=== PATIENT | male | born 1940 | race Caucasian/White ===

== ENCOUNTER 2018-03-10 13:06 | Inpatient (IN) | payer OTHER ==
[~2018-03-10] VITALS: Ht 182.9 cm; Wt 76.6 kg
--- NOTE | ~2018-03-10 | HC ---
[facility] [place] [address] [place] [address] CONSULTATION Name: ALIYA BENITES Room #: 203-P ADM IN M.R.#: [id number] Admission: 03/10/18 Attend Phys: Ean Hargrove MD Discharge: Date of : 39 Report #: [id number] THIS REPORT FOR: //name// CC: Ean Hargrove [facility] physician/PCP DATE OF SERVICE: 03/10/2018 HISTORY OF PRESENT ILLNESS: This is a 77-year-old male patient who was evaluated by me for stroke. The patient is a poor historian. I talked to Emergency Room physician and talked to admitting physician, Dr. Hargrove. This patient lives with his son. Son was out of the town. He also was living with a friend during that time who called the son because the patient was not acting right. He is weak on the left side. He also has some neglect on the left side. Symptoms are more than 24-hour duration. He did fall, but does not look like he received any injury. It is not clear if he hit his head or not. He does not know anything, which makes this symptom worse or better. He does not know if it has improved or not, but he has a significant neglect there. REVIEW OF SYSTEMS: Indicates his vascular risk factor is stroke. He is a very poor historian. He cannot tell me if he has been hypertensive or diabetic, the best he knows he is not. He does not have any history of stroke in the past. He denies any new eye, ENT, cardiac, respiratory, GI, , musculoskeletal, constitutional, dermatological, hematological, psychiatry, throat or allergic symptom associated with present symptomatology. PAST MEDICAL HISTORY: Negative for stroke. FAMILY HISTORY: Negative for early age stroke. SOCIAL HISTORY: He smokes. PHYSICAL EXAMINATION: Indicate he is alert. He is responsive. He can follow simple commands. His speech looks intact, but his memory and fund of knowledge is diminished. Cranial nerve examination 2-12 indicates left hemianopsia and mild left facial weakness. He is weak in the left upper and left lower extremities. His position sense appeared to be present. He has neglect there. He does have visual spacial problem there. There are no cerebellar signs on the right side. I could not have a very good look at the patient's fundus. He is moderately well-built individual who does not have any dysmorphic features of eyes, ears and face. His vision and hearing looks adequate. His pulses are difficult to feel. He has no edema, cyanosis or jaundice. Cardiac examination is unremarkable. No respiratory difficulty or rhonchi was noticed on either side. Blood pressure is 142/85, respirations 16, pulse is 116. LABORATORY DATA: Indicate a white count of 12.5, which is somewhat high. His [facility] [address] [place] [address] CONSULTATION Name: ALIYA BENITES Room #: 203-P [facility] IN M.R.#: [id number] Admission: 03/10/18 Attend Phys: Ean Hargrove MD Discharge: Date of : 39 Report #: [id number] troponin is high at 5.88, and his liver function is also somewhat off. There is a CT scan that demonstrates finding consistent with right posterior cerebral artery infarct. He has metal in his body and is not sure if he can have an MRI or not: IMPRESSION: 1. Cerebrovascular accident. 2. Metal in the body, which may be contraindication for MRI. 3. Nicotine abuse. 4. Increased troponin. Some increase in troponin is common in stroke, but this looks more than what usually is seen. Because of that, I will suggest a cardiology consult, especially because he has a posterior cerebral artery stroke, which is a common site for embolization from the heart. RECOMMENDATIONS: 1. We will get a carotid Doppler first. 2. We will get an echocardiogram. 3. We will get a cardiology consult. 4. We will get some more blood workup. 5. He fell down. It is not clear what the history is in that regard, but because of that, I will go ahead and do a CT of the C-spine. It does not look like it was a dissection, but I will look at the CT spine. 6. We will put him on aspirin. 7. We will check a lipid profile and see if we need to do anything further in that regard, especially about the statin. All of it was discussed with the patient and the family and admitting doctor. We will follow this patient along with you. <ELECTRONICALLY SIGNED> By: Kael Guidry MD 03/11/18 1349 [id number] [id number] Kael Guidry MD /nt
--- NOTE | ~2018-03-10 | EKG ---
[place] [facility] [place] [address] ELECTROCARDIOGRAM REPORT Name: ALIYA BENITES Room #: 170-9 ADM IN M.R.#: [id number] Admission: 03/10/18 Attend Phys: Ean Hargrove MD Discharge: Date of : 39 Report #: [id number] THIS REPORT FOR: //name// [facility] ED Test Date: 2018-03-10 Test Time: 13:58:37 Pat Name: ALIYA BENITES Department: Room: Gender: M [employer] Spanish Teacher: jenny : 1940 Requested By: Rosanna Jarquin Order Number: [id number] MD: Be Joyner Measurements Intervals [place] Rate: 81 P: 52 [place]: 157 QRS: -4 QRSD: 116 T: 167 QT: 389 QTc: 452 Interpretive Statements Sinus rhythm Multiple premature complexes, vent & supraven Incomplete left bundle branch block ST depr, consider ischemia, anterolateral lds Compared to ECG 06/26/2016 21:43:55 Left bundle-branch block now present Possible ischemia now present Sinus arrhythmia no longer present ST (T wave) deviation no longer present Electronically Signed On 03-10-2018 15:48:35 CDT by Be Joyner [email or web address] <ELECTRONICALLY SIGNED> By: Be Joyner MD 03/10/18 1548 1358 [id number] Be Joyner MD /EPI
--- NOTE | ~2018-03-10 | EKG ---
[address] [employer] [address] ELECTROCARDIOGRAM REPORT Name: ALIYA BENITES Room #: 203-P ADM IN M.R.#: [id number] Admission: 03/10/18 Attend Phys: Ean Hargrove MD Discharge: Date of : 39 Report #: [id number] THIS REPORT FOR: //name// [facility] [place] [facility] Test Date: 2018-03-10 Test Time: 19:51:30 Pat Name: ALIYA BENITES Department: Room: 403 P Gender: M Dental Lab Technician: Yuan [place] : 1940 Requested By: Ean Hargrove Order Number: [id number] MD: Alvaro Hendrix Measurements Intervals [place] Rate: 98 P: 58 [place]: 152 QRS: 11 QRSD: 118 T: 192 QT: 376 QTc: 481 Interpretive Statements Sinus rhythm with atrial premature complexes Occasional premature ventricular complexes Nonspecific ST and T wave abnormality Compared to ECG 03/10/2018 13:58:37 premature ventricular complexes are now present Electronically Signed On 03-11-2018 8:04:13 CDT by Alvaro Hendrix [email or web address] <ELECTRONICALLY SIGNED> By: Alvaro Hendrix MD, [facility] 03/11/18 0804 50 50 Alvaro Hendrix MD, [facility] /EPI
--- NOTE | ~2018-03-10 | 2DMMODE ---
[facility] [address] [place] [address] 2 D/M-MODE ECHOCARDIOGRAM Name: ALIYA BENITES Room #: 203-P ADM IN .R.#: [id number] Admission: 03/10/18 Attend Phys: Ean Hargrove MD Discharge: Date of : 39 Date of Service: 03/11/18 0908 Report #: [id number] THIS REPORT FOR: //name// APPROVED REPORT Study performed: 03/11/2018 08:18:35 EXAM: Comprehensive 2D, Doppler, and color-flow Echocardiogram Patient Location: Bedside Room #: 203 Status: routine BSA: 1.94 HR: 85 bpm BP: 145/111 mmHg Other Information Study Quality: Adequate Indications CVA/TIA Hypertension/HDD 2D Dimensions RVDd: 45.26 mm LVEF(%): 17.25 (>50%) IVSd: 8.99 (7-11mm) LVOT Diam: 24.31 (18-24mm) LVDd: 62.91 mm PWd: 8.99 (7-11mm) Ascending Ao: 30.79 (22-36mm) LVDs: 57.91 (25-40mm) Aortic Root: 33.24 mm IVC: 23.00 mm Car's LVEF: 17.25 % Volumes Left Atrial Volume (Systole) Single Plane 4CH: 64.60 mL Single Plane 2CH: 67.81 mL LA ESV Index: 37.00 mL/m2 Pulmonary Valve PV Peak Adin.: 0.82 m/s PV Peak Gr.: 2.70 mmHg Tricuspid Valve TR Peak Adin.: 3.18 m/s TR Peak Gr.: 40.52 mmHg PA Pressure: 55.00 mmHg Left Ventricle [facility] [address] [place] [address] 2 D/M-MODE ECHOCARDIOGRAM Name: ALIYA BENITES Room #: 203-P ADM IN M.R.#: [id number] Admission: 03/10/18 Attend Phys: Ean Hargrove MD Discharge: Date of : 39 Date of Service: 03/11/18 0908 Report #: [id number] Left ventricle is dilated. There is normal left ventricular wall thickness. Left ventricular ejection fraction is severely decreased. LVEF is 25%. This study is not technically sufficient to allow evaluation of the LV diastolic function. Right Ventricle Right ventricle is dilated. Right ventricle is hypokinetic. Atria Left atrium is dilated. Interatrial septum is intact without evidence of ASD or PFO. Right atrium is dilated. Aortic Valve Aortic valve is grossly normal in structure. Mild aortic regurgitation. There is no aortic valvular stenosis. Mitral Valve Moderate mitral annular calcification Moderately severe to severe mitral regurgitation No evidence of mitral valve stenosis. Tricuspid Valve The tricuspid valve is normal in structure. There is mild tricuspid regurgitation. Estimated PAP 55 mmHg. There is moderate pulmonary hypertension. Pulmonic Valve The pulmonary valve is normal in structure. There is no pulmonic valvular regurgitation. Great Vessels The aortic root is normal in size. The inferior vena cava is dilated with no inspiratory collapse. Pericardium There is no pericardial effusion. <Conclusion> Left ventricular ejection fraction is severely decreased. LVEF is 25%. Both atria are dilated. No shunting by contrast bubble injection Aortic valve is grossly normal in structure. Mild aortic regurgitation. Moderate mitral annular calcification. Moderately severe to severe mitral regurgitation [facility] [address] [place] [address] 2 D/M-MODE ECHOCARDIOGRAM Name: ALIYA BENITES Room #: 203-P [facility] IN .R.#: [id number] Admission: 03/10/18 Attend Phys: Ean Hargrove MD Discharge: Date of : 39 Date of Service: 03/11/18907 Report #: [id number] There is mild tricuspid regurgitation. Estimated pulmonary artery pressure of 55 mmHg. There is no pericardial effusion. <ELECTRONICALLY SIGNED> By: Alvaro Hendrix MD, [facility] 03/11/18907 7 7 Alvaro Hendrix MD, FACC /INF
--- NOTE | ~2018-03-10 | EKG ---
[address] [address] ELECTROCARDIOGRAM REPORT Name: ALIYA BENITES Room #: 170-9 ADM IN M.R.#: [id number] Admission: 03/10/18 Attend Phys: Ean Hargrove MD Discharge: Date of : 39 Report #: [id number] THIS REPORT FOR: //name// [facility] ED Test Date: 2018-03-10 Test Time: 13:54:58 Pat Name: ALIYA BENITES Department: Room: Gender: M Motion Graphics Designer: jenny : 1940 Requested By: Pasquale Abbott Order Number: [id number] MD: Measurements Intervals [place] Rate: 101 P: 50 [place]: 157 QRS: -4 QRSD: 112 T: 243 QT: 372 QTc: 483 Interpretive Statements Sinus tachycardia with irregular rate Borderline intraventricular conduction delay Repol abnrm suggests ischemia, diffuse leads Compared to ECG 06/26/2016 21:43:55 Early repolarization now present Possible ischemia now present Sinus arrhythmia no longer present ST (T wave) deviation no longer present [email or web address] By: 1354 1354 Epiphany Epiphany, /EPI
--- NOTE | ~2018-03-10 | EKG ---
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[place] : 1940 Requested By: Pasquale Abbott Order Number: [id number] MD: Alvaro Hendrix Measurements Intervals [place] Rate: 96 P: 39 [place]: 174 QRS: 1 QRSD: 116 T: 126 QT: 384 QTc: 486 Interpretive Statements Sinus rhythm LVH with secondary repolarization abnormality Borderline prolonged QT interval Compared to ECG 03/10/2018 13:58:37 Premature ventricular complexes no longer present Electronically Signed On 03-11-2018 7:59:33 CDT by Alvaro Hendrix [email or web address] <ELECTRONICALLY SIGNED> By: Alvaro Hendrix MD, [facility] 03/11/18 0759 1742 174 Alvaro Hendrix MD, [facility] /EPI
--- NOTE | ~2018-03-10 | HC ---
[facility] [place] [address] [place] [address] CONSULTATION Name: ALIYA BENITES Room #: 237-P ADM IN M.R.#: [id number] Admission: 03/10/18 Attend Phys: Ean Hargrove MD Discharge: Date of : 39 Report #: [id number] THIS REPORT FOR: //name// CC: Ean Hargrove [facility] physician/PCP CHIEF COMPLAINT: Hematuria. HISTORY OF PRESENT ILLNESS: The patient is a 77-year-old gentleman who is being seen today at the request of Dr. Hargrove for evaluation and management of hematuria. Specifically, he is hospitalized with a CVA and a non-ST elevation myocardial infarction. He has a Becerra catheter indwelling. He apparently pulled on it and his urine became sanguinous. I am not able to obtain any premorbid voiding history from him. At this time, the nurses apparently irrigated it. However, upon questioning the nurses, they were irrigating the side port of the drainage bag, not the side port itself. ALLERGIES: None. MEDICATIONS: Refer to the medication reconciliation sheet. PAST MEDICAL HISTORY: Illnesses include coronary artery disease, CVA and history of BPH. PAST SURGERIES: Include coronary artery bypass graft. REVIEW OF SYSTEMS: No shortness of breath or chest pain, but he does not answer questions logically. PHYSICAL EXAMINATION: GENERAL: He is comfortable appearing, lying in bed. ABDOMEN: Soft. GENITOURINARY: He has a normal phallus. The Becerra catheter is in the urethra, but I can feel the balloon inflated, it was probably the bulbar urethra. I deflated the balloon and advanced the catheter, pink-tinged urine was obtained. I then reinflated the balloon and irrigated the catheter to a point where the urine was clear. Catheter was draining well. IMPRESSION: Urethral trauma. PLAN: Leave Becerra in for 4-5 days and remove when medically stable. By: 0727 0740 Roel Solano MD /nt
[~2018-03-10 13:06] MED LIST: ACIDOPHILUS LACT1 GM PO; LEVAQUIN 500 M500 M2 PO; NOHOMEMEDICATIONS; VENTOLIN HFA 1818 GM INH
[2018-03-10 13:29] LABS: ABSOLUTE NEUTROPHILS 10.1 thou/uL (1.4-8.2); BASOPHILS 0.6 % (0.0-2.0); EOSINOPHILS 0.2 % (0.0-3.0); HEMOGLOBIN 14.4 gm/dL (14.0-18.0); LYMPHOCYTES 11.7 % (24.0-44.0); MCH 29.8 pg (26.0-34.0); MCHC 33.4 g/dL (28.0-37.0); MCV 89.1 fL (80.0-100.0); MONOCYTES 6.4 % (1.0-8.0); PLATELET COUNT 248 thou/uL (150-400); POLYS 81.1 % (36.0-66.0); RBC 4.83 mil/uL (4.50-6.00); RDW 14.9 % (10.5-14.5); WBC 12.5 thou/uL (4.0-11.0)
[2018-03-10 13:40] LABS: CALCIUM 8.7 mg/dL (8.5-10.1)
[2018-03-10 16:10] LABS: ALBUMIN 3.6 g/dL (3.4-5.0); DIRECT BILIRUBIN 0.2 mg/dL (<0.1-0.3); MAGNESIUM 2.1 mg/dL (1.8-2.4); TOTAL BILIRUBIN 0.5 mg/dL (<0.1-1.0); TOTAL PROTEIN 7.1 g/dL (6.4-8.2)
[2018-03-10 16:12] LABS: TROPONIN-I 5.88 ng/mL (<0.06)
[2018-03-10 16:39] VITALS: BP 142/85
[2018-03-10 16:53] LABS: URINE BILIRUBIN NEGATIVE (Negative); URINE BLOOD 1+ (Negative); URINE CLARITY CLEAR; URINE COLOR YELLOW; URINE GLUCOSE-RANDOM* NEGATIVE (Negative); URINE KETONES NEGATIVE (Negative); URINE LEUKOCYTES-REFLEX NEGATIVE (Negative); URINE NITRITE-REFLEX NEGATIVE (Negative); URINE PROTEIN (DIPSTICK) TRACE (Negative); URINE SPECIFIC GRAVITY >= 1.030 (1.005-1.035)
[2018-03-10 16:57] LABS: CHOLESTEROL 195 mg/dL (<200); HDL CHOLESTEROL 47 mg/dL (>40); LDL CHOLESTEROL 133 mg/dL (<100); TC:HDL 4.1 Ratio (Not establshd); TRIGLYCERIDE 78 mg/dL (<150); VLDL 16 mg/dL (<40)
[2018-03-10 17:20] VITALS: BP 155/97
[2018-03-10 17:24] LABS: CASTS None Seen /LPF (None Seen); CRYSTALS None Seen /LPF (None Seen); SQUAMOUS 0-3 Few /LPF (0-3); URINE RBC 3-10 Few /HPF (0-2)
[2018-03-10 17:25] LABS: BACTERIA-REFLEX 1-9 Few /HPF (None Seen); URINE WBC-REFLEX 0-5 Rare /HPF (0-5)
[2018-03-10 17:58] VITALS: BP 145/73
[2018-03-10 20:57] LABS: HEMATOCRIT 42.4 % (42.0-52.0); HEMOGLOBIN 14.2 gm/dL (14.0-18.0); MCH 29.5 pg (26.0-34.0); MCHC 33.5 g/dL (28.0-37.0); MCV 88.1 fL (80.0-100.0); RBC 4.81 mil/uL (4.50-6.00); RDW 14.7 % (10.5-14.5); WBC 16.1 thou/uL (4.0-11.0)
[2018-03-10 21:06] VITALS: BP 151/96
[2018-03-10 21:11] LABS: APTT 30.8 Seconds (24.5-32.8); INR 1.1; PROTIME 11.1 Seconds (9.3-11.4)
[2018-03-11 00:03] VITALS: BP 140/98
[2018-03-11 01:26] LABS: HEMATOCRIT 42.9 % (42.0-52.0); HEMOGLOBIN 14.2 gm/dL (14.0-18.0); MCH 29.5 pg (26.0-34.0); MCHC 33.2 g/dL (28.0-37.0); MCV 88.9 fL (80.0-100.0); RBC 4.83 mil/uL (4.50-6.00); RDW 14.6 % (10.5-14.5); WBC 13.5 thou/uL (4.0-11.0)
[2018-03-11 01:36] LABS: ALBUMIN 3.3 g/dL (3.4-5.0); CALCIUM 8.6 mg/dL (8.5-10.1); CREATININE 1.1 mg/dL (0.7-1.3); POTASSIUM 4.3 mmol/L (3.5-5.1); TOTAL BILIRUBIN 0.7 mg/dL (<0.1-1.0)
[2018-03-11 04:23] VITALS: BP 145/111
[2018-03-11 08:47] VITALS: BP 145/79
[2018-03-11 12:28] VITALS: BP 136/89
[2018-03-11 16:02] VITALS: BP 127/74
[2018-03-11 20:17] VITALS: BP 148/97
[2018-03-12] VITALS (59 sets, daily range): BP systolic 119–170; BP diastolic 78–122
[2018-03-12 10:17] LABS: URINE BILIRUBIN NEGATIVE (Negative); URINE BLOOD 2+ (Negative); URINE CLARITY CLEAR; URINE COLOR YELLOW; URINE GLUCOSE-RANDOM* NEGATIVE (Negative); URINE KETONES NEGATIVE (Negative); URINE LEUKOCYTES-REFLEX NEGATIVE (Negative); URINE NITRITE-REFLEX NEGATIVE (Negative); URINE PROTEIN (DIPSTICK) 1+ (Negative); URINE SPECIFIC GRAVITY 1.025 (1.005-1.035)
[2018-03-12 10:30] LABS: CASTS None Seen /LPF (None Seen); SQUAMOUS 0-3 Few /LPF (0-3); URINE RBC 0-2 Rare /HPF (0-2)
[2018-03-12 10:31] LABS: BACTERIA-REFLEX 1-9 Few /HPF (None Seen); CRYSTALS None Seen /LPF (None Seen); URINE WBC-REFLEX None Seen /HPF (0-5)
[2018-03-12 20:32] LABS: BE(vivo) -1.9 mmol/L (-2 to +3); HCO3 21.9 mmol/L (22.0-26.0); pH 7.415 (7.360-7.450)
[2018-03-13] VITALS (35 sets, daily range): BP systolic 83–147; BP diastolic 52–103
[2018-03-13 07:36] LABS: HEMATOCRIT 39.6 % (42.0-52.0); HEMOGLOBIN 13.2 gm/dL (14.0-18.0); MCH 29.6 pg (26.0-34.0); MCHC 33.4 g/dL (28.0-37.0); MCV 88.6 fL (80.0-100.0); RBC 4.47 mil/uL (4.50-6.00); RDW 14.9 % (10.5-14.5); WBC 17.8 thou/uL (4.0-11.0)
[2018-03-13 07:44] LABS: CALCIUM 8.2 mg/dL (8.5-10.1); CREATININE 0.9 mg/dL (0.7-1.3); POTASSIUM 3.4 mmol/L (3.5-5.1)
[2018-03-13 09:13] LABS: ANA INTERPRETATION Negative (Negative)
[2018-03-13 11:14] LABS: SYPHILIS AB Negative (Negative)
[2018-03-14] VITALS (12 sets, daily range): BP systolic 93–141; BP diastolic 58–103
[2018-03-14 08:10] LABS: ANION GAP 9 mmol/L (7-16); BUN 18 mg/dL (7-18); CALCIUM 8.1 mg/dL (8.5-10.1); CHLORIDE 109 mmol/L (98-107); CO2 24 mmol/L (21-32); CREATININE 0.9 mg/dL (0.7-1.3); GLUCOSE 136 mg/dL (74-106); POTASSIUM 3.6 mmol/L (3.5-5.1); SODIUM 142 mmol/L (136-145)
[2018-03-14 08:21] LABS: HEMATOCRIT 39.6 % (42.0-52.0); HEMOGLOBIN 13.1 gm/dL (14.0-18.0); MCH 29.5 pg (26.0-34.0); MCHC 33.1 g/dL (28.0-37.0); MCV 89.1 fL (80.0-100.0); RBC 4.44 mil/uL (4.50-6.00); RDW 14.7 % (10.5-14.5); WBC 14.5 thou/uL (4.0-11.0)
[2018-03-14 09:59] LABS: CHOLESTEROL 143 mg/dL (<200); HDL CHOLESTEROL 39 mg/dL (>40); LDL CHOLESTEROL 90 mg/dL (<100); SGOT 78 U/L (15-37); SGPT 121 U/L (30-65); TC:HDL 3.7 Ratio (Not establshd); TRIGLYCERIDE 72 mg/dL (<150); VLDL 14 mg/dL (<40)
[2018-03-15 03:53] VITALS: BP 115/71
[2018-03-15 06:01] LABS: ABSOLUTE NEUTROPHILS 12.4 thou/uL (1.4-8.2); BASOPHILS 0.3 % (0.0-2.0); HEMATOCRIT 39.9 % (42.0-52.0); HEMOGLOBIN 13.3 gm/dL (14.0-18.0); LYMPHOCYTES 8.1 % (24.0-44.0); MCH 29.4 pg (26.0-34.0); MCHC 33.3 g/dL (28.0-37.0); MCV 88.2 fL (80.0-100.0); PLATELET COUNT 222 thou/uL (150-400); POLYS 81.6 % (36.0-66.0); RBC 4.52 mil/uL (4.50-6.00); RDW 14.6 % (10.5-14.5); WBC 15.2 thou/uL (4.0-11.0)
[2018-03-15 06:18] LABS: CALCIUM 7.9 mg/dL (8.5-10.1); CREATININE 0.9 mg/dL (0.7-1.3); MAGNESIUM 1.9 mg/dL (1.8-2.4); POTASSIUM 3.8 mmol/L (3.5-5.1)
[2018-03-15 07:19] VITALS: BP 136/81
[2018-03-15] MEDS ORDERED: AUGMENTIN 875-1 EACH PO (09:37)
[2018-03-15] MEDS ORDERED: ACETAMINOPHEN325 M1 PO (09:38)
[2018-03-15] MEDS ORDERED: COZAAR 25 MG TA25 M1 PO (09:38)
[2018-03-15] MEDS ORDERED: ASA5UEC PO (09:38)
[2018-03-15] MEDS ORDERED: ATORVASTATIN CA40 MG PO (09:38)
[2018-03-15] MEDS ORDERED: COREG6.25 MG PO (09:38)
[2018-03-15 11:18] VITALS: BP 103/59
== END 2018-03-15 12:30 | DRG 64 ==
LOC: ER 13:06 → 2N 14:59 → EROBS 14:59 → 3W 14:59 → 4N 18:15 → 2N 20:49 → ICU 03-12 09:08 → 3W 03-14 18:15
PROVIDERS: Emergency Medicine; Hospitalist; Internal Medicine; Internal Medicine Cardiovascular Disease; Psychiatry & Neurology Neuromuscular Medicine
DX: I63.9 Cerebral infarction, unspecified (principal); I21.4 Non-ST elevation (NSTEMI) myocardial infarction; S37.30XA Unspecified injury of urethra, initial encounter; E78.5 Hyperlipidemia, unspecified; I25.10 Atherosclerotic heart disease of native coronary artery without angina pectoris; R10.9 Unspecified abdominal pain; N40.0 Benign prostatic hyperplasia without lower urinary tract symptoms; F17.210 Nicotine dependence, cigarettes, uncomplicated; H53.462 Homonymous bilateral field defects, left side; I25.5 Ischemic cardiomyopathy; X58.XXXA Exposure to other specified factors, initial encounter; Z95.1 Presence of aortocoronary bypass graft; Z79.899 Other long term (current) drug therapy; Y93.89 Activity, other specified; Z71.6 Tobacco abuse counseling; Y92.89 Other specified places as the place of occurrence of the external cause; Y99.8 Other external cause status; Z82.49 Family history of ischemic heart disease and other diseases of the circulatory system
CPT/HCPCS: 10078; 10081; 10779

== ENCOUNTER 2018-03-15 10:18 | Inpatient (IN) | payer OTHER ==
[~2018-03-15] VITALS: Ht 182.9 cm; Wt 77.4 kg
--- NOTE | ~2018-03-15 | H ---
[facility] [place] [address] [place] [address] HISTORY AND PHYSICAL Name: ALIYA BENITES Room #: 514-P ADM IN M.R.#: [id number] Admission: 03/15/18 Attend Phys: Roel Novoa MD Discharge: Date of : 39 Report #: [id number] THIS REPORT FOR: //name// CC: Roel Camara [facility] physician/PCP DATE OF SERVICE: 03/15/2018 HISTORY AND PHYSICAL/POST ADMISSION PHYSICIAN EVALUATION HISTORY OF PRESENT ILLNESS: The patient is a 77-year-old white male who was originally admitted to [facility] 03/10/2018 with left-sided weakness and not acting like himself. He was seen by Neurology, underwent neurologic evaluation and found to have a subacute ischemic infarct of the right posterior cerebral artery. He also was noted to have an elevated troponin and was diagnosed with a non-ST elevation [place]. He was placed on a heparin drip. He was seen by Neurology with demonstration of dense hemianopsia. Repeat CT did not show any evidence of hemorrhagic conversion. The patient has a history of prior coronary artery bypass grafting x 6 in 2000 and Cardiology is involved with the recommendation for medical therapy at present. Carotid Doppler showed no significant stenosis. He is on aspirin and is to follow up with Neurology as an outpatient. He was noted to have significant decreased functional abilities with left-sided weakness, left hemianopsia and has been admitted now for acute in-hospital inpatient rehabilitation. PAST MEDICAL HISTORY: He has had a TIA, pneumonia, CABG in 2000, enlarged prostate. PAST SURGICAL HISTORY: Includes coronary artery bypass grafting. HABITS: Tobacco usage noted to be less than 1 pack per day per records. No history of alcohol abuse. There is noted to be [id number] history of tobacco. SOCIAL HISTORY: Lives with his son in a house independently, utilizes no adaptive devices and was able to drive himself. Apparently, they do a lot of scrap metal. There is a son that lives there and the son's girlfriend. There is a grandson that is also involved and the grandson's mother that lives close by. The grandson notes that he may be able to take his grandfather home with him and provide supervision with his family. ALLERGIES: No known drug allergies. REVIEW OF SYSTEMS: The patient did have some problems with urination with Urology consultation by Dr. Solano. He was noted to have some urethral trauma with a Becerra catheter and it was inflated and advanced. Review of systems [facility] [address] [place] [address] HISTORY AND PHYSICAL Name: ALIYA BENITES Room #: 514-P [facility] IN M.R.#: [id number] Admission: 03/15/18 Attend Phys: Roel Novoa MD Discharge: Date of : 39 Report #: [id number] otherwise negative for chest pain, shortness of breath, abdominal discomfort. PHYSICAL EXAMINATION: GENERAL: A 77-year-old white male. He is a poor historian. He does not know the place that he is at. He can tell me the year. He tends to fidget. He wants to try to get up. VITAL SIGNS: Afebrile. Vital signs are stable. HEENT: Appeared benign. CHEST: Sounded clear to auscultation. CARDIOVASCULAR: Regular rate and rhythm with occasional extra beats. ABDOMEN: Bowel sounds positive, nontender. GENITOURINARY AND RECTAL: He has an indwelling Becerra catheter. Otherwise deferred. NEUROLOGIC: Cranial nerves appear to have some decreased attention left visual field. EOMs otherwise appeared full. There is no nystagmus. Right upper and right lower extremity appears to have functional strength of a grade 4/5, left upper extremity has some decreased functional use with some clumsiness of the left upper extremity. I would grade at a 4-/5. Left lower extremity is probably more of a grade 4-/5. DTRs were 1. Functionally, he transfers with min assist. Gait mod assist to 100 feet. Lower body dressing, min assist, socks and hose. ASSESSMENT: A 77-year-old white male with the following problem list: 1. Cerebrovascular accident, subacute infarct, right posterior cerebral artery territory. 2. Non-ST elevation myocardial infarction. 3. Left-sided hemiparesis. 4. Left visual field deficits. 5. Cardiomyopathy with noted ejection fraction approximately 25%. 6. Safety issues with decreased insight. 7. Hyperlipidemia. 8. Tobaccoism. PLAN: The patient is admitted for acute in-hospital inpatient rehabilitation. From a postadmission physician evaluation perspective, there are no relevant changes since the preadmission screening. Please see the above review of prior and current medical and functional conditions and comorbidities. Please see the patient's previous and current functional status. As far as risk of complications, the patient has multiple medical comorbidities as noted above. The initial plan of care involves the interdisciplinary acute inpatient rehabilitation program with goal of maximizing the patient's functional independence, so he can hopefully return back to his prior living situation. Measurable functional goals would be for the patient to become modified independent with transfers, mobility, ADLs, cognition, so he can return back to the home setting. Prognosis is reasonably good with estimated length of stay probably at least 5-10 days and potentially longer. We will likely need a [facility] [address] [place] [address] HISTORY AND PHYSICAL Name: ALIYA BENITES Room #: 514-P ADM IN .R.#: [id number] Admission: 03/15/18 Attend Phys: Roel Novoa MD Discharge: Date of : 39 Report #: [id number] longer stay, but I know the patient is anxious to go back home and will need to see as far as how he does and family support. Grandson is very supportive as far as arranging appropriate discharge for him. Potential barriers would include the patient's multiple medical comorbidities and decreased functional status. The patient meets diagnostic criteria for an acute in-hospital inpatient rehabilitation stay. He does meet medical necessity criteria and we will have the multiple oracle fusion consultant physicians continue to follow. He has the tolerance for therapies and has appropriate discharge goals back to the home setting. He is situated right across from the nurse's station. I had a long discussion with the patient's grandson as well as the patient's grandson's mother. I had discussion with nursing as well and we will allow the grandson to be able to get the patient up and ambulate the patient with a gait belt and walker as indicated, so that the patient can get out of his room and get out into the dining area, etc. He is situated across from the nurse's station, so they can keep a close eye on him and do frequent checks. We will also have the doors closed to the unit just to decrease any chances of potential elopement. By: 12 2129 Roel Novoa MD /nt
--- NOTE | ~2018-03-15 | HC ---
[facility] [place] [address] [place] [address] CONSULTATION Name: ALIYA BENITES Room #: 514-P [facility] IN M.R.#: [id number] Admission: 03/15/18 Attend Phys: Roel Novoa MD Discharge: 03/21/18 Date of : 38 Report #: [id number] THIS REPORT FOR: //name// CC: Roel Camara [facility] physician/PCP DATE OF SERVICE: 03/16/2018 NEUROBEHAVIORAL STATUS EXAMINATION ATTENDING PHYSICIAN: Roel Novoa MD MARINE EQUIPMENT DESIGN ENGINEER: Connor Mayberry, PhD CLINICAL PRESENTATION: The patient is a 77-year-old male admitted to the rehab unit at [facility] for comprehensive inpatient program to improve functional mobility, activities of daily living and self-care and mental status secondary to deficits from a cerebrovascular accident. He was admitted to the hospital with confusion and disorientation. He was noted to have sustained a non-ST elevation myocardial infarction. Neurology consultation identified a dense hemianopsia. He has a history of coronary artery bypass grafting x 6 in 2000. 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 A complete description of his medical condition and history along with medications can be found in his medical record. Neuropsychological consultation was requested to provide assistance in the assessment of cognitive and emotional status and to provide recommendations and services. Prior to this most recent admission he was living at home with his son. His son lives with him. He has a very supportive grandson and granddaughter. The grandson indicated that the patient had been showing memory problems for about a year. He had been repeating himself and required increased assistance to maintain diet and nutrition. He was driving up until his hospitalization. He was independent with basic and instrumental activities of daily living. He has 4 children, 1 son and 3 daughters. While the son is living there, his grandson and daughter appear to provide the most assistance. He is a high school graduate. 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 His about 4 years ago. His son moved in with him at the time the . [facility] [address] [place] [address] CONSULTATION Name: ALIYA BENITES Room #: 514-P [facility] IN M.R.#: [id number] Admission: 03/15/18 Attend Phys: Roel Novoa MD Discharge: 03/21/18 Date of : 38 Report #: [id number] TECHNIQUES UTILIZED: Clinical interview, review of medical records, staff consultation and behavioral observation, attempted mini mental status examination and family interview -- grandson Elyse). EXAMINATION FINDINGS: The patient required encouragement to maintain an adequate alert and responsive level of arousal. He is very hard of hearing. He has a severe visual impairment. Diagnosed as a hemianopsia. The patient is lacking insight into the reason for his hospitalization. He has not been eating and requires redirection and encouragement to maintain appropriate safety precautions. He is a fall risk and has had trouble, and has attempted to walk and even leave the unit without assistance. Decreased insight is suggested. His sleep is reported as restless and fidgety. This type of presentation is consistent with a dementia. The vascular features along with possible cortical neurodegenerative changes associated with Alzheimer disease. There is no history of substance abuse or treatment for depression or anxiety. DIAGNOSTIC IMPRESSION: Major neurocognitive disorder (dementia), possibly due to vascular disease with Alzheimer type features, with decreased insight -- extent to be determined, moderate to severe at this time. RECOMMENDATIONS: The patient would benefit from a more thorough neuropsych assessment upon discharge from rehabilitation. At this time, he requires 24-hour care that includes assistance in management of medication and nutrition. He has required frequent redirection. Impulsivity is described by nursing staff and has required a sitter at this time to maintain safety. He was cooperative during my interview. There will be continued need for redirection and frequent orientation to assist his overall adjustment. Thank you very much for allowing me to provide the consultation on this patient. <ELECTRONICALLY SIGNED> By: Connor Mayberry, PhD 03/23/18 1414 1412 [id number] Connor Mayberry, PhD /nt
--- NOTE | ~2018-03-15 | PLAN ---
[facility] [place] [address] [place] [address] REHAB UNIT PLAN OF CARE Name: ALIYA BENITES Room #: 514-P ADM IN M.R.#: [id number] Admission: 03/15/18 Attend Phys: Roel Novoa MD Discharge: Date of : 38 Report #: [id number] THIS REPORT FOR: //name// CC: Roel Camara [facility] physician/PCP DATE OF SERVICE: 03/17/2018 PROGRESS NOTE AND OVERALL PLAN OF CARE SUBJECTIVE: The patient is seen back today in followup. He did not sleep well last night. The nurse indicated that he had been on Seroquel and thinks that he may have had some hallucinations secondary to it. He has not slept very well. Today, he appears cooperative. He has definite decreased insight into why he is here. Facies appeared symmetric. I could not detect any focal neurologic change from his prior evaluation. Transfers are min assist with gait min assist 10 feet without a device. In occupational therapy, working on dressing activities, which have been max assist. In speech therapy, he has [id number] comprehension. He is on a mechanical soft, thin diet. He has severe cognitive deficits and does have some impulsivity and decreased safety awareness. ASSESSMENT: 1. Cerebrovascular accident, subacute infarct, right posterior cerebral artery territory. 2. Non-ST elevation myocardial infarction. 3. Left-sided hemiparesis. He appears to be moving at left side better for my evaluation this morning. 4. Left-sided visual field deficits. We are cueing him more regarding this. 5. Cardiomyopathy with an ejection fraction of around 25%. 6. Safety issues with decreased insight. 7. Hyperlipidemia. 8. Tobaccoism. PLAN: The overall plan of care is based on the preadmission screen, post-admission physician evaluation, and information garnered from therapy assessments. 1. Estimated length of stay is probably 1-2 weeks as indicated. 2. Medical prognosis is reasonably good. 3. Anticipated interventions includes the interdisciplinary acute inpatient rehabilitation program with PT, OT, and speech rehab nursing working with him regarding medication management, skin care prophylaxis, bowel and bladder issues, and nursing education. 4. Anticipated functional outcomes would be for the patient to become modified independent with transfers, mobility, ADLs as well as improvement with [facility] [address] [place] [address] REHAB UNIT PLAN OF CARE Name: ALIYA BENITES Room #: 514-P [facility] IN ..#: [id number] Admission: 03/15/18 Attend Phys: Roel Novoa MD Discharge: Date of : 38 Report #: [id number] cognition. He may not achieve modified independent, but we need to achieve a functional level where he can return back to the home setting. His grandson appears very supportive. 5. Discharge destination would be back to the home setting with a grandson and his family or possibly to the son's home. 6. Expected therapy by discipline includes PT, OT, and speech 1 hour per day each five days a week throughout the duration of the acute inpatient rehabilitation stay. ADDENDUM: Discussion with the nursing staff. My hope is that he will have a better day today with full therapies and be able to sleep better and actually from having a busy day this evening. Discussion with nursing who agreed. If he continues to have problems with difficulty sleeping, etc., may consider having Psychiatry assist. At this point, he appears cooperative and we will see how he does after having a full therapy day. By: 0915 2314 Roel Novoa MD /[facility]
[~2018-03-15 10:18] MED LIST changes: +ACETAMINOPHEN325 M1 PO; +ASA5UEC PO; +ATORVASTATIN CA40 MG PO; +AUGMENTIN 875-1 EACH PO; +COREG6.25 MG PO; +COZAAR 25 MG TA25 M1 PO
[2018-03-15 13:39] VITALS: BP 122/67
[2018-03-15 21:21] VITALS: BP 129/73
[2018-03-16 05:00] LABS: HEMATOCRIT 42.7 % (42.0-52.0); HEMOGLOBIN 13.9 gm/dL (14.0-18.0); MCH 29.2 pg (26.0-34.0); MCHC 32.6 g/dL (28.0-37.0); MCV 89.5 fL (80.0-100.0); RBC 4.77 mil/uL (4.50-6.00); WBC 16.2 thou/uL (4.0-11.0)
[2018-03-16 05:12] LABS: CALCIUM 8.5 mg/dL (8.5-10.1); POTASSIUM 3.6 mmol/L (3.5-5.1)
[2018-03-16 05:57] VITALS: BP 140/85
[2018-03-16 09:42] VITALS: BP 137/84
[2018-03-16 16:55] VITALS: BP 140/90
[2018-03-16 20:01] VITALS: BP 118/47
[2018-03-17 07:31] VITALS: BP 123/71
[2018-03-17 07:40] VITALS: BP 123/71
[2018-03-17 16:43] VITALS: BP 129/84
[2018-03-18 08:00] VITALS: BP 128/63
[2018-03-18 19:00] VITALS: BP 130/59
[2018-03-19 03:56] LABS: ABSOLUTE NEUTROPHILS 12.6 thou/uL (1.4-8.2); BASOPHILS 0.4 % (0.0-2.0); EOSINOPHILS 1.1 % (0.0-3.0); HEMOGLOBIN 13.5 gm/dL (14.0-18.0); LYMPHOCYTES 9.6 % (24.0-44.0); MCH 29.6 pg (26.0-34.0); MCV 89.7 fL (80.0-100.0); MONOCYTES 9.4 % (1.0-8.0); PLATELET COUNT 301 thou/uL (150-400); POLYS 79.5 % (36.0-66.0); RBC 4.57 mil/uL (4.50-6.00); RDW 15.2 % (10.5-14.5); WBC 15.9 thou/uL (4.0-11.0)
[2018-03-19 04:05] LABS: CALCIUM 8.8 mg/dL (8.5-10.1); MAGNESIUM 2.1 mg/dL (1.8-2.4); POTASSIUM 3.8 mmol/L (3.5-5.1)
[2018-03-19 04:11] LABS: ALBUMIN 3.1 g/dL (3.4-5.0); DIRECT BILIRUBIN 0.2 mg/dL (<0.1-0.3); TOTAL BILIRUBIN 0.6 mg/dL (<0.1-1.0); TOTAL PROTEIN 6.3 g/dL (6.4-8.2)
[2018-03-19 07:25] VITALS: BP 125/72
[2018-03-19 20:40] VITALS: BP 146/93
[2018-03-20 07:08] VITALS: BP 154/87
[2018-03-20 10:08] LABS: ABSOLUTE NEUTROPHILS 14.9 thou/uL (1.4-8.2); BASOPHILS 0.3 % (0.0-2.0); EOSINOPHILS 0.1 % (0.0-3.0); HEMATOCRIT 42.9 % (42.0-52.0); HEMOGLOBIN 14.2 gm/dL (14.0-18.0); LYMPHOCYTES 6.3 % (24.0-44.0); MCH 29.6 pg (26.0-34.0); MCHC 33.1 g/dL (28.0-37.0); MCV 89.6 fL (80.0-100.0); MONOCYTES 6.3 % (1.0-8.0); PLATELET COUNT 293 thou/uL (150-400); RBC 4.78 mil/uL (4.50-6.00); RDW 15.4 % (10.5-14.5); WBC 17.1 thou/uL (4.0-11.0)
[2018-03-20 10:23] LABS: CALCIUM 8.4 mg/dL (8.5-10.1); POTASSIUM 3.9 mmol/L (3.5-5.1)
[2018-03-20 19:12] VITALS: BP 122/73
[2018-03-20 20:09] LABS: URINE BLOOD TRACE (Negative); URINE CLARITY CLEAR; URINE COLOR BROWN; URINE GLUCOSE-RANDOM* NEGATIVE (Negative); URINE KETONES NEGATIVE (Negative); URINE LEUKOCYTES-REFLEX NEGATIVE (Negative); URINE NITRITE-REFLEX NEGATIVE (Negative); URINE PROTEIN (DIPSTICK) 1+ (Negative); URINE SPECIFIC GRAVITY >= 1.030 (1.005-1.035)
[2018-03-20 20:11] LABS: ICTOTEST (BILI CONFIRMATORY) Negative (Negative); URINE BILIRUBIN NEGATIVE (Negative)
[2018-03-20 20:18] LABS: BACTERIA-REFLEX None Seen /HPF (None Seen); CRYSTALS None Seen /LPF (None Seen); FINE GRANULAR CASTS 0-3 Few /LPF (None Seen); HYALINE CASTS 4-10 Moderate /LPF (None Seen); MUCUS >6 Heavy strn/LPF (None Seen); SQUAMOUS 0-3 Few /LPF (0-3); URINE RBC 0-2 Rare /HPF (0-2); URINE WBC-REFLEX 0-5 Rare /HPF (0-5)
[2018-03-21 08:00] VITALS: BP 132/76
[2018-03-21 08:41] VITALS: BP 132/76
[2018-03-21 13:34] LABS: BE(vivo) -1.8 mmol/L (-2 to +3); PCO2 34.9 mmHg (35.0-45.0); PO2 81.7 mmHg (80.0-100.0); pH 7.418 (7.360-7.450); sO2 96.3 % (92.0-98.0)
[2018-03-21] MEDS ORDERED: OXCARBAZEPINE300 M1 PO (15:49)
[2018-03-21] MEDS ORDERED: SPIRONOLACTONE25 M1 PO (15:49)
[2018-03-21] MEDS ORDERED: FUROSEMIDE20 MG/2 ML IV PUSH (15:49)
[2018-03-21] MEDS ORDERED: ASA5UEC PO (15:49)
[2018-03-21] MEDS ORDERED: HYDRALAZIN20 MG/1 ML IV PUSH (15:49)
[2018-03-21] MEDS ORDERED: ZOSYN 3/0.373.375 G3 IV (15:50)
== END 2018-03-21 16:44 | disposition short-term general hospital (02) | DRG 56 ==
PROVIDERS: Hospitalist; Nurse Practitioner; Nurse Practitioner Family; Physical Medicine & Rehabilitation; Psychiatry & Neurology Psychiatry
DX: G81.94 Hemiplegia, unspecified affecting left nondominant side (principal); I63.9 Cerebral infarction, unspecified; I21.4 Non-ST elevation (NSTEMI) myocardial infarction; G92 Toxic encephalopathy; I42.9 Cardiomyopathy, unspecified; E87.0 Hyperosmolality and hypernatremia; R44.3 Hallucinations, unspecified; E46 Unspecified protein-calorie malnutrition; H53.9 Unspecified visual disturbance; E78.5 Hyperlipidemia, unspecified; G30.9 Alzheimer's disease, unspecified; I25.10 Atherosclerotic heart disease of native coronary artery without angina pectoris; F02.80 Dementia in other diseases classified elsewhere, unspecified severity, without behavioral disturbance, psychotic disturbance, mood disturbance, and anxiety; F17.210 Nicotine dependence, cigarettes, uncomplicated; N40.0 Benign prostatic hyperplasia without lower urinary tract symptoms; G47.00 Insomnia, unspecified; D72.829 Elevated white blood cell count, unspecified; R45.87 Impulsiveness; G62.9 Polyneuropathy, unspecified; K59.00 Constipation, unspecified; Z95.1 Presence of aortocoronary bypass graft; Z68.23 Body mass index [BMI] 23.0-23.9, adult; Z79.899 Other long term (current) drug therapy; R13.10 Dysphagia, unspecified
CPT/HCPCS: 10112

== ENCOUNTER 2018-03-21 16:12 | Inpatient (IN) | payer OTHER ==
[~2018-03-21] VITALS: Ht 188 cm; Wt 67.1 kg
--- NOTE | ~2018-03-21 | HC ---
[facility] [place] [address] [place] [address] CONSULTATION Name: ALIYA BENITES Room #: 239-P ADM IN M.R.#: [id number] Admission: 03/21/18 Attend Phys: Ivelisse Prater Discharge: Date of : 38 Report #: [id number] THIS REPORT FOR: //name// CC: Cory Camara [facility] physician/PCP Ivelisse Prater DATE OF SERVICE: 03/24/2018 INFECTIOUS DISEASE CONSULTATION ATTENDING PHYSICIAN: Ivelisse Prater MD REASON FOR CONSULTATION: Worsening leukocytosis. HISTORY OF PRESENT ILLNESS: A 77-year-old white man, initially hospitalized on 03/10/2018, diagnosed to have stroke. Apparently, the patient transferred to rehab, subsequently regular floor and now, he is in the ICU and on account of worsening leukocytosis, ID opinion is requested. PAST MEDICAL HISTORY: Coronary artery bypass grafting, atrial fibrillation and embolic cerebrovascular accident. Evidence of cerebral atrophy by CT scanning and a diagnosis of dementia is also present in his records. The patient has ischemic cardiomyopathy, abdominal aortic aneurysm. There is a history of cigarette smoking, I wonder if COPD. DRUG ALLERGIES: None listed. MEDICATIONS: The patient on treatment with cefepime 1 g IV daily, enoxaparin, insulin lispro per sliding scale, magnesium and potassium supplementation per protocol, Lasix 40 mg IV daily, famotidine 20 mg IV b.i.d., budesonide inhalation twice daily, Atrovent and albuterol inhalation treatments every 4 hours, p.r.n. hydralazine. Glucose glucagon per protocol, has received amiodarone. Several sedatives have been discontinued including lorazepam, haloperidol and the patient was also on valproate. SOCIAL HISTORY: Unable to obtain. FAMILY HISTORY: Unable to obtain. REVIEW OF SYSTEMS: Unable to obtain. PHYSICAL EXAMINATION: GENERAL: Elderly man with significant episode of apnea presenting with following vital signs. VITAL SIGNS: Temperature 97.4, respirations 17-30 per minute, pulse 67, BP [facility] [address] [place] [address] CONSULTATION Name: ALIYA BENITES Room #: [facility] IN [facility].#: [id number] Admission: 03/21/18 Attend Phys: Ivelisse Prater Discharge: Date of : 38 Report #: [id number] 115/85, height 6 feet 2 inches, weight 156 pounds. HEENMT: Head normocephalic, atraumatic. Pupils reactive, arcus cornealis, edentulous. NECK: Supple. LUNGS: Basilar crackles and rhonchi. HEART: S1, S2. No gallop. ABDOMEN: Supraumbilical laparotomy scar, not a word said about this previous surgery. No palpable masses or megaly, no abnormal tenderness. GENITALIA: Becerra catheter in place. RECTAL: Deferred. EXTREMITIES: No clubbing, cyanosis. LABORATORY DATA: Sodium was 145 on 03/19/2018 and 152 today, potassium 3.1, CO2 of 31, BUN 29, creatinine 1.4, glucose 126. On 03/22/2018, alkaline phosphatase 119, SGPT 142. Albumin 3.1 g/dL. Ammonia was normal. NT-proBNP on a couple of occasions elevated at 28,259 and 28,150. The white blood cell count has been elevated for several days, and today, the white blood cell count jumps up to 28,300, the hemoglobin is 13.6 g/dL and platelets 278,000. No white blood cell count differential today. Urinalysis revealed hematuria. The microscopic examination of the urine revealed microscopic hematuria and bacteriuria. A set of blood gases obtained on 03/21/2018 revealed pH 7.41, pCO2 of 34, pO2 of 81, bicarbonate 22.3, lactate normal. This set of gases is on room air. MICROBIOLOGY DATA: Blood cultures were obtained on 03/10/2018 and 03/24/2018 and remain negative so far. RADIOLOGY EVALUATION: CT scan abdomen and pelvis was obtained on 03/21/2018 and they revealed abdominal aortic aneurysm as well as abdominal aortic calcifications. Bilateral pleural effusions with basilar atelectasis and infiltrates. CT scan of the head revealed atrophy with enlargement of the ventricles and sulci. Right medial occipital infarct noted. Chest x-ray has revealed cardiomegaly, bilateral haziness. ASSESSMENT: 1. Worsening leukocytosis, question etiology, entertain possibility of aspiration versus ischemic bowel disease. 2. Altered mental status secondary to above. 3. Hypernatremia. 4. Cerebrovascular accident. 5. Cardiomyopathy. 6. Ischemic heart disease. SUGGESTIONS: Recommend improved anaerobic coverage from the oral cavity with Zosyn 3.375 g IV every 8 hours. Discontinue cefepime. Obtain MRSA screen, ESR, CRP. May consider adding vancomycin for positive MRSA screen. [address] [address] CONSULTATION Name: ALIYA BENITES Room #: 239-P ADM IN M.R.#: [id number] Admission: 03/21/18 Attend Phys: Ivelisse Prater Discharge: Date of : 38 Report #: [id number] Prater, thank you for requesting my suggestions. <ELECTRONICALLY SIGNED> By: Mason Joyner MD 03/25/18 0915 1426 1950 Mason Joyner MD /nt
[~2018-03-21 16:12] MED LIST changes: +FUROSEMIDE20 MG/2 ML IV PUSH; +HYDRALAZIN20 MG/1 ML IV PUSH; +OXCARBAZEPINE300 M1 PO; +SPIRONOLACTONE25 M1 PO; +ZOSYN 3/0.373.375 G3 IV
[2018-03-21 18:55] VITALS: BP 120/73
[2018-03-22 02:52] VITALS: BP 137/82
[2018-03-22 06:03] LABS: ABSOLUTE NEUTROPHILS 14.3 thou/uL (1.4-8.2); BASOPHILS 0.2 % (0.0-2.0); EOSINOPHILS 0.4 % (0.0-3.0); HEMATOCRIT 39.9 % (42.0-52.0); HEMOGLOBIN 13.2 gm/dL (14.0-18.0); LYMPHOCYTES 7.6 % (24.0-44.0); MCH 29.5 pg (26.0-34.0); MCHC 33.1 g/dL (28.0-37.0); MCV 89.3 fL (80.0-100.0); PLATELET COUNT 285 thou/uL (150-400); POLYS 84.8 % (36.0-66.0); RBC 4.47 mil/uL (4.50-6.00); RDW 15.6 % (10.5-14.5); WBC 16.9 thou/uL (4.0-11.0)
[2018-03-22 06:21] LABS: CALCIUM 8.5 mg/dL (8.5-10.1); CREATININE 1.2 mg/dL (0.7-1.3); POTASSIUM 3.2 mmol/L (3.5-5.1)
[2018-03-22 07:27] VITALS: BP 155/94
[2018-03-22 11:39] VITALS: BP 149/97
[2018-03-22 16:29] VITALS: BP 142/67
[2018-03-22 16:32] LABS: ALBUMIN 3.1 g/dL (3.4-5.0); CALCIUM 8.7 mg/dL (8.5-10.1); CREATININE 1.3 mg/dL (0.7-1.3); TOTAL BILIRUBIN 0.7 mg/dL (<0.1-1.0); TOTAL PROTEIN 6.3 g/dL (6.4-8.2)
[2018-03-22 19:11] VITALS: BP 141/77
[2018-03-23] VITALS (18 sets, daily range): BP systolic 106–162; BP diastolic 62–112
[2018-03-23 05:25] LABS: HEMATOCRIT 41.6 % (42.0-52.0); HEMOGLOBIN 13.8 gm/dL (14.0-18.0); MCH 29.3 pg (26.0-34.0); MCHC 33.1 g/dL (28.0-37.0); MCV 88.4 fL (80.0-100.0); RBC 4.71 mil/uL (4.50-6.00); WBC 17.8 thou/uL (4.0-11.0)
[2018-03-23 05:44] LABS: ALBUMIN 2.9 g/dL (3.4-5.0); CALCIUM 8.5 mg/dL (8.5-10.1); CREATININE 1.2 mg/dL (0.7-1.3); PHOSPHORUS 3.3 mg/dL (2.5-4.9)
[2018-03-24] VITALS (31 sets, daily range): BP systolic 113–149; BP diastolic 59–101
[2018-03-24 03:52] LABS: HEMATOCRIT 41.9 % (42.0-52.0); HEMOGLOBIN 13.6 gm/dL (14.0-18.0); MCV 89.1 fL (80.0-100.0); RBC 4.7 mil/uL (4.50-6.00); WBC 28.3 thou/uL (4.0-11.0)
[2018-03-24 03:53] LABS: MCH 28.9 pg (26.0-34.0); MCHC 32.4 g/dL (28.0-37.0); RDW 15.2 % (10.5-14.5)
[2018-03-24 04:02] LABS: ALBUMIN 2.7 g/dL (3.4-5.0); CALCIUM 8.4 mg/dL (8.5-10.1); CREATININE 1.4 mg/dL (0.7-1.3); PHOSPHORUS 3.9 mg/dL (2.5-4.9); POTASSIUM 3.1 mmol/L (3.5-5.1)
[2018-03-24 12:06] LABS: URINE BILIRUBIN NEGATIVE (Negative); URINE BLOOD 3+ (Negative); URINE CLARITY CLEAR; URINE COLOR YELLOW; URINE GLUCOSE-RANDOM* NEGATIVE (Negative); URINE KETONES NEGATIVE (Negative); URINE LEUKOCYTES-REFLEX NEGATIVE (Negative); URINE NITRITE-REFLEX NEGATIVE (Negative); URINE PROTEIN (DIPSTICK) NEGATIVE (Negative); URINE UROBILINOGEN 0.2 E.U./dl (0.2-1.0)
[2018-03-24 12:24] LABS: BACTERIA-REFLEX 1-9 Few /HPF (None Seen); CASTS None Seen /LPF (None Seen); CRYSTALS None Seen /LPF (None Seen); SQUAMOUS None Seen /LPF (0-3); URINE RBC >20 Many /HPF (0-2); URINE WBC-REFLEX 0-5 Rare /HPF (0-5)
[2018-03-24 17:35] LABS: MAGNESIUM 2.2 mg/dL (1.8-2.4); POTASSIUM 3.1 mmol/L (3.5-5.1)
[2018-03-25] VITALS (17 sets, daily range): BP systolic 112–151; BP diastolic 60–100
[2018-03-25 00:02] LABS: BE(vivo) 2.7 mmol/L (-2 to +3); HCO3 26.8 mmol/L (22.0-26.0); PCO2 39.7 mmHg (35.0-45.0); PO2 64.2 mmHg (80.0-100.0); pH 7.447 (7.360-7.450); sO2 93.4 % (92.0-98.0)
[2018-03-25 04:13] LABS: HEMATOCRIT 41.7 % (42.0-52.0); HEMOGLOBIN 13.6 gm/dL (14.0-18.0); MCH 29.4 pg (26.0-34.0); MCHC 32.5 g/dL (28.0-37.0); MCV 90.4 fL (80.0-100.0); RBC 4.61 mil/uL (4.50-6.00); WBC 26.8 thou/uL (4.0-11.0)
[2018-03-25 04:15] LABS: ALBUMIN 2.6 g/dL (3.4-5.0); CALCIUM 8.2 mg/dL (8.5-10.1); CREATININE 1.3 mg/dL (0.7-1.3); PHOSPHORUS 3.3 mg/dL (2.5-4.9); POTASSIUM 3.3 mmol/L (3.5-5.1)
[2018-03-26 04:32] VITALS: BP 147/111
[2018-03-26 06:25] LABS: HEMATOCRIT 39.8 % (42.0-52.0); HEMOGLOBIN 13.1 gm/dL (14.0-18.0); MCH 29.4 pg (26.0-34.0); MCHC 32.9 g/dL (28.0-37.0); MCV 89.4 fL (80.0-100.0); RBC 4.45 mil/uL (4.50-6.00); RDW 15.5 % (10.5-14.5); WBC 19.3 thou/uL (4.0-11.0)
[2018-03-26 06:42] LABS: ALBUMIN 2.6 g/dL (3.4-5.0); CALCIUM 8.4 mg/dL (8.5-10.1); PHOSPHORUS 2.2 mg/dL (2.5-4.9); POTASSIUM 3.1 mmol/L (3.5-5.1)
[2018-03-26 08:00] VITALS: BP 140/89
[2018-03-26 10:47] VITALS: BP 140/89
[2018-03-26 16:00] VITALS: BP 120/68
[2018-03-26 23:17] VITALS: BP 105/63
[2018-03-27 05:51] LABS: HEMATOCRIT 39.4 % (42.0-52.0); MCH 29.6 pg (26.0-34.0); MCHC 32.9 g/dL (28.0-37.0); MCV 90.1 fL (80.0-100.0); RBC 4.37 mil/uL (4.50-6.00); RDW 15.6 % (10.5-14.5); WBC 13.1 thou/uL (4.0-11.0)
[2018-03-27 06:03] LABS: ALBUMIN 2.5 g/dL (3.4-5.0); CALCIUM 8.3 mg/dL (8.5-10.1); PHOSPHORUS 2.5 mg/dL (2.5-4.9); POTASSIUM 3.4 mmol/L (3.5-5.1)
[2018-03-27 07:18] VITALS: BP 129/57
[2018-03-27 10:02] VITALS: BP 106/54
[2018-03-27 15:50] VITALS: BP 130/87
[2018-03-27 20:20] VITALS: BP 136/72
[2018-03-28 03:37] VITALS: BP 139/69
[2018-03-28 06:42] LABS: ABSOLUTE NEUTROPHILS 11.9 thou/uL (1.4-8.2); BASOPHILS 0.3 % (0.0-2.0); EOSINOPHILS 2.1 % (0.0-3.0); HEMATOCRIT 39.1 % (42.0-52.0); HEMOGLOBIN 12.8 gm/dL (14.0-18.0); LYMPHOCYTES 9.4 % (24.0-44.0); MCH 29.3 pg (26.0-34.0); MCHC 32.6 g/dL (28.0-37.0); MCV 89.8 fL (80.0-100.0); MONOCYTES 7.1 % (1.0-8.0); PLATELET COUNT 251 thou/uL (150-400); POLYS 81.1 % (36.0-66.0); RBC 4.36 mil/uL (4.50-6.00); RDW 15.5 % (10.5-14.5); WBC 14.6 thou/uL (4.0-11.0)
[2018-03-28 06:56] LABS: CALCIUM 8.2 mg/dL (8.5-10.1); POTASSIUM 3.5 mmol/L (3.5-5.1)
[2018-03-28 12:03] VITALS: BP 113/59
[2018-03-28 16:22] VITALS: BP 112/56
[2018-03-28 20:07] VITALS: BP 126/52
[2018-03-29 05:22] LABS: ALBUMIN 2.5 g/dL (3.4-5.0); CALCIUM 7.8 mg/dL (8.5-10.1); CREATININE 0.9 mg/dL (0.7-1.3); PHOSPHORUS 2.1 mg/dL (2.5-4.9); POTASSIUM 3.5 mmol/L (3.5-5.1)
[2018-03-29 09:31] VITALS: BP 116/56
[2018-03-29 16:10] VITALS: BP 111/65
[2018-03-29] MEDS ORDERED: AUGMENTIN 875-1 EACH PO (16:36)
[2018-03-29] MEDS ORDERED: FLOMAX0.4 MG PO (16:37)
[2018-03-29] MEDS ORDERED: ATORVASTATIN CA40 MG PO (16:37)
[2018-03-29] MEDS ORDERED: ASPIRIN325 PO (16:37)
[2018-03-29] MEDS ORDERED: COZAAR 25 MG TA25 M1 PO (16:37)
[2018-03-29] MEDS ORDERED: PACERONE 200 M200 M1 PO (16:37)
[2018-03-29] MEDS ORDERED: COREG6.25 MG PO (16:37)
[2018-03-29 19:20] VITALS: BP 120/67
[2018-03-30 03:36] VITALS: BP 118/66
[2018-03-30 08:00] VITALS: BP 114/56
[2018-03-30 16:00] VITALS: BP 124/62
[2018-03-30 19:35] VITALS: BP 108/65
[2018-03-31 04:43] VITALS: BP 119/59
[2018-03-31 05:47] LABS: HEMOGLOBIN 12.5 gm/dL (14.0-18.0); MCH 29.3 pg (26.0-34.0); MCHC 32.9 g/dL (28.0-37.0); MCV 89.3 fL (80.0-100.0); RBC 4.26 mil/uL (4.50-6.00); RDW 15.7 % (10.5-14.5); WBC 16.8 thou/uL (4.0-11.0)
[2018-03-31 05:59] LABS: ALBUMIN 2.4 g/dL (3.4-5.0); CALCIUM 7.4 mg/dL (8.5-10.1); CREATININE 0.9 mg/dL (0.7-1.3); POTASSIUM 3.3 mmol/L (3.5-5.1); TOTAL BILIRUBIN 0.8 mg/dL (<0.1-1.0); TOTAL PROTEIN 5.5 g/dL (6.4-8.2)
[2018-03-31 14:55] LABS: URINE BLOOD TRACE (Negative); URINE CLARITY CLEAR; URINE GLUCOSE-RANDOM* NEGATIVE (Negative); URINE KETONES NEGATIVE (Negative); URINE LEUKOCYTES-REFLEX NEGATIVE (Negative); URINE NITRITE-REFLEX NEGATIVE (Negative); URINE PROTEIN (DIPSTICK) 1+ (Negative); URINE SPECIFIC GRAVITY >= 1.030 (1.005-1.035)
[2018-03-31 14:56] LABS: ICTOTEST (BILI CONFIRMATORY) Negative (Negative); URINE BILIRUBIN NEGATIVE (Negative)
[2018-03-31 14:57] LABS: URINE COLOR DARK YELLOW
[2018-03-31 15:11] LABS: BACTERIA-REFLEX 1-9 Few /HPF (None Seen); CASTS None Seen /LPF (None Seen); CRYSTALS None Seen /LPF (None Seen); MUCUS 0-3 Light strn/LPF (None Seen); SQUAMOUS 0-3 Few /LPF (0-3); URINE RBC 0-2 Rare /HPF (0-2); URINE WBC-REFLEX None Seen /HPF (0-5)
[2018-03-31 17:38] VITALS: BP 124/58
[2018-03-31 20:00] VITALS: BP 129/67
[2018-04-01 04:00] VITALS: BP 107/64
[2018-04-01 05:58] LABS: ABSOLUTE NEUTROPHILS 9.4 thou/uL (1.4-8.2); BASOPHILS 0.2 % (0.0-2.0); EOSINOPHILS 1.9 % (0.0-3.0); HEMATOCRIT 36.9 % (42.0-52.0); HEMOGLOBIN 12.2 gm/dL (14.0-18.0); LYMPHOCYTES 11.7 % (24.0-44.0); MCH 29.6 pg (26.0-34.0); MCHC 33.2 g/dL (28.0-37.0); MCV 89.3 fL (80.0-100.0); MONOCYTES 8.3 % (1.0-8.0); PLATELET COUNT 237 thou/uL (150-400); POLYS 77.9 % (36.0-66.0); RBC 4.13 mil/uL (4.50-6.00); RDW 15.8 % (10.5-14.5); WBC 12.1 thou/uL (4.0-11.0)
[2018-04-01 06:04] LABS: CALCIUM 7.5 mg/dL (8.5-10.1); CREATININE 0.9 mg/dL (0.7-1.3); POTASSIUM 3.3 mmol/L (3.5-5.1)
[2018-04-01 07:51] VITALS: BP 139/75
[2018-04-01] MEDS ORDERED: VITAMIN B-12500 MCG PO (14:04)
[2018-04-01] MEDS ORDERED: MELATONIN1 MG PO (14:04)
[2018-04-01] MEDS ORDERED: B12INJ IM (14:04)
== END 2018-04-01 14:30 | DRG 64 ==
LOC: 2N 16:12 → 3W 17:01 → ICU 17:01 → 4W 03-25 11:46 → ENTRNSPT 04-01 14:22 → EDTRNSPTSTS 04-01 14:24 → 4W 04-01 14:30
PROVIDERS: Hospitalist; Nurse Practitioner; Psychiatry & Neurology Addiction Medicine; Psychiatry & Neurology Neurology
PROC: 02HV33Z Insertion of Infusion Device into Superior Vena Cava, Percutaneous Approach (ICD-10-PCS; principal; 2018-03-24)
DX: I63.9 Cerebral infarction, unspecified (principal); I21.4 Non-ST elevation (NSTEMI) myocardial infarction; J69.0 Pneumonitis due to inhalation of food and vomit; E87.0 Hyperosmolality and hypernatremia; G81.94 Hemiplegia, unspecified affecting left nondominant side; I42.9 Cardiomyopathy, unspecified; I48.91 Unspecified atrial fibrillation; E53.8 Deficiency of other specified B group vitamins; R33.9 Retention of urine, unspecified; R31.9 Hematuria, unspecified; D72.829 Elevated white blood cell count, unspecified; E78.5 Hyperlipidemia, unspecified; F03.90 Unspecified dementia, unspecified severity, without behavioral disturbance, psychotic disturbance, mood disturbance, and anxiety; F17.210 Nicotine dependence, cigarettes, uncomplicated; I25.9 Chronic ischemic heart disease, unspecified; Z79.51 Long term (current) use of inhaled steroids; Z79.899 Other long term (current) drug therapy; Z95.1 Presence of aortocoronary bypass graft; Z79.1 Long term (current) use of non-steroidal anti-inflammatories (NSAID); Z82.49 Family history of ischemic heart disease and other diseases of the circulatory system; Z79.2 Long term (current) use of antibiotics; Z79.82 Long term (current) use of aspirin; Z88.8 Allergy status to other drugs, medicaments and biological substances
CPT/HCPCS: 10047; 10078; 10203; 10879; 27000